=== PATIENT | female | born 1995 | race Caucasian/White ===

== ENCOUNTER 2021-12-21 18:07 | Emergency (ER) | payer MEDICAID ==
[~2021-12-21] VITALS: Ht 175.3 cm; Wt 52.6 kg
[2021-12-21 18:20] VITALS: BP 134/98
--- NOTE | 2021-12-21 19:00 | NUR ---
26YO FEMALE PT C/O BURNING 7/10 L EAR PAIN X1 HOUR. PT STATES "SOMEONE" REACHED FOR HER GLASSES AND MISSED , GRABBING HER EARRING INSTEAD . PT PRESENTS WITH LACERATION FROM MID LOBE OUTWARD THROUGH EAR, MILD ACTIVE BLEEDING. PT DENIES TAKING MEDICATION FOR PAIN PRIOR TO ARRIVAL. PT AAOX4 , VITALS WITHIN NORMAL RANGE, ALL NEEDS MET AT THIS TIME NKA FRANCINEX
--- NOTE | 2021-12-21 19:18 | NUR ---
REPORT GIVEN TO FAN SMITH. TRANSFER OF CARE AT THIS TIME
[2021-12-21] MEDS ORDERED: IBUPROFEN 600 MG TAB PO ONE (19:40)
[2021-12-21] MEDS ORDERED: LIDOCAINE MPF 1% 5 ML ONE (19:40)
[2021-12-21] MEDS ORDERED: LIDOCAINE MPF 1% 10 MG/ML VIAL INJ ONE (19:40)
--- NOTE | 2021-12-21 20:07 | NUR ---
ERMD STRAUSS AT BEDSIDE.
[2021-12-21] MEDS ORDERED: IBUP-2213 PO (20:24)
[2021-12-21] MEDS ORDERED: BACI1PAC6 TP (20:24)
--- NOTE | 2021-12-21 20:26 | NUR ---
PT MEDICATED PER ORDER.
[2021-12-21 20:30] VITALS: BP 134/98
--- NOTE | 2021-12-21 20:30 | NUR ---
Patient discharged with v/s stable. Written and verbal after care instructions given and explained. Patient alert, oriented and verbalized understanding of instructions. Ambulatory with steady gait. All questions addressed prior to discharge. ID band removed. Patient advised to follow up with PMD. Rx of BACITRACIN AND IBUPROFEN given. Patient educated on indication of medication including possible reaction and side effects. Opportunity to ask questions provided and answered.
== END 2021-12-21 20:30 | disposition home or self-care (01) ==
LOC: MED 18:07
DX: S01.312A Laceration without foreign body of left ear, initial encounter (principal); X58.XXXA Exposure to other specified factors, initial encounter; Y93.89 Activity, other specified; Y92.89 Other specified places as the place of occurrence of the external cause; Y99.8 Other external cause status
CPT/HCPCS: 12011; 90471; 90715; 99283; J2001